=== PATIENT | male | born 1980 | race Caucasian/White ===

== ENCOUNTER 2017-08-18 21:03 | Inpatient (IN) | payer OTHER ==
[2017-08-18] MEDS ORDERED: ONDANSETRON 4 MG INJ IV (23:30)
[2017-08-18] MEDS: metroNIDAZOLE 500 MG/NS (PMX) 100 ML IVPB (23:37)
[2017-08-19] MEDS: PIPER-TAZO 3.375 GM IV (PMX) 100 ML IVPB ×4 (00:40→18:46)
[2017-08-19] MEDS: QUETIAPINE 25 MG TAB PO ×2 (00:40→20:25)
[2017-08-19] MEDS: RISPERIDONE 2 MG TAB PO ×2 (00:40→20:25)
[2017-08-19] MEDS: morphine 2 MG INJ IV ×3 (02:45→21:55)
[2017-08-19] MEDS: metroNIDAZOLE 500 MG/NS (PMX) 100 ML IVPB ×3 (05:21→23:25)
[2017-08-19 05:29] LABS: ADD MAN DIFF? NO
[2017-08-19 05:30] LABS: BASOPHILS % 0.5 % (0.0-2.0); EOSINOPHILS # 0.2 10^3/ul (0.0-0.5); EOSINOPHILS % 2.6 % (0.0-7.0); HEMOGLOBIN 11.1 g/dl (14.0-18.0); LYMPHOCYTES # 1.4 10^3/ul (0.8-2.9); LYMPHOCYTES % 15.5 % (15.0-51.0); MEAN CORPUSCULAR HEMOGLOBIN 28.8 pg (29.0-33.0); MEAN CORPUSCULAR HGB CONC 33.6 g/dl (32.0-37.0); MEAN CORPUSCULAR VOLUME 85.5 fl (82.0-101.0); MEAN PLATELET VOLUME 9.1 fl (7.4-10.4); MONOCYTE # 0.7 10^3/ul (0.3-0.9); NEUTROPHIL # 6.4 10^3/ul (1.6-7.5); NEUTROPHILS % 72.8 % (39.0-77.0); PLATELET COUNT 371 10^3/UL (140-415); RED BLOOD COUNT 3.86 10^6/ul (4.70-6.10)
[2017-08-19 05:30] LABS: WHITE BLOOD COUNT 8.8 10^3/ul (4.8-10.8)
[2017-08-19 05:48] LABS: ALANINE AMINOTRANSFERASE 29 IU/L (13-69); ALBUMIN 3.6 g/dl (3.3-4.9); ALBUMIN/GLOBULIN RATIO 0.97; ALKALINE PHOSPHATASE 95 IU/L (42-121); ANION GAP 16 (8-16); ASPARTATE AMINO TRANSFERASE 20 IU/L (15-46); BILIRUBIN,INDIRECT 0.2 mg/dl (0-1.1); BILIRUBIN,TOTAL 0.2 mg/dl (0.2-1.3); BLOOD UREA NITROGEN 7 mg/dl (7-20); CALCIUM 8.7 mg/dl (8.4-10.2); CARBON DIOXIDE 29 mmol/L (21-31); CHLORIDE 107 mmol/L (97-110); CREATININE 1.03 mg/dl (0.61-1.24); GLUCOSE 87 mg/dl (70-220); SODIUM 148 mmol/L (135-144); TOTAL PROTEIN 7.3 g/dl (6.1-8.1)
[2017-08-19] MEDS: BUPROPION (XL) 150 MG TAB PO (09:52)
[2017-08-19] MEDS: BUPROPION (SR) 150 MG TAB PO (09:54)
[2017-08-19] MEDS: ACETAMINOPHEN 325 MG TAB PO ×2 (12:07→20:25)
[2017-08-19] MEDS ORDERED: VANCOMYCIN IV PER PHARMACY XX (16:30)
[2017-08-19] MEDS: SOD FERRIC GLUC COMPLX 125 MG in SOD CHLORIDE 0.9% 100 ML IVPB (16:46)
[2017-08-19] MEDS: DEXTROSE 5% 1,000 ML IV (16:48)
[2017-08-19] MEDS: LIDOCAINE 1%/EPI (MDV) 50 ML INJ INJ (18:06)
[2017-08-19] MEDS: VANCOMYCIN 1.5 GM in SOD CHLORIDE 0.9% 250 ML IVPB (19:46)
[2017-08-19] MEDS ORDERED: QUETIAPINE 25 MG TAB PO (21:00)
[2017-08-19] MEDS ORDERED: RISPERIDONE 2 MG TAB PO (21:00)
[2017-08-19] MEDS: ZOLPIDEM 5 MG TAB PO (21:55)
[2017-08-20] MEDS: PIPER-TAZO 3.375 GM IV (PMX) 100 ML IVPB ×5 (00:54→23:58)
[2017-08-20 05:21] LABS: ADD MAN DIFF? NO
[2017-08-20 05:24] LABS: BASOPHIL # 0.1 10^3/ul (0.0-0.1); BASOPHILS % 0.9 % (0.0-2.0); EOSINOPHILS # 0.4 10^3/ul (0.0-0.5); EOSINOPHILS % 5.8 % (0.0-7.0); HEMATOCRIT 35.2 % (42.0-52.0); HEMOGLOBIN 11.8 g/dl (14.0-18.0); LYMPHOCYTES # 1.3 10^3/ul (0.8-2.9); LYMPHOCYTES % 19.7 % (15.0-51.0); MEAN CORPUSCULAR HGB CONC 33.5 g/dl (32.0-37.0); MEAN CORPUSCULAR VOLUME 86.5 fl (82.0-101.0); MEAN PLATELET VOLUME 8.9 fl (7.4-10.4); MONOCYTE # 0.7 10^3/ul (0.3-0.9); MONOCYTES % 10.2 % (0.0-11.0); NEUTROPHIL # 4.1 10^3/ul (1.6-7.5); NEUTROPHILS % 62.3 % (39.0-77.0); PLATELET COUNT 388 10^3/UL (140-415); RED BLOOD COUNT 4.07 10^6/ul (4.70-6.10); RED CELL DISTRIBUTION WIDTH 11.9 % (11.5-14.5)
[2017-08-20 05:24] LABS: WHITE BLOOD COUNT 6.6 10^3/ul (4.8-10.8)
[2017-08-20 05:38] LABS: ANION GAP 14 (8-16); BLOOD UREA NITROGEN 4 mg/dl (7-20); CARBON DIOXIDE 31 mmol/L (21-31); CHLORIDE 106 mmol/L (97-110); CREATININE 1.09 mg/dl (0.61-1.24); GLUCOSE 99 mg/dl (70-220); POTASSIUM 3.7 mmol/L (3.5-5.1); SODIUM 147 mmol/L (135-144)
[2017-08-20] MEDS: metroNIDAZOLE 500 MG/NS (PMX) 100 ML IVPB ×3 (06:00→22:11)
[2017-08-20] MEDS: VANCOMYCIN 1 GM 250 ML IVPB ×2 (06:58→19:38)
[2017-08-20] MEDS: morphine 2 MG INJ IV (09:17)
[2017-08-20] MEDS: SODIUM HYPOCHLORITE 0.125% 473 ML BTL IRR (09:17)
[2017-08-20] MEDS: BUPROPION (XL) 150 MG TAB PO (09:19)
[2017-08-20] MEDS: BUPROPION (SR) 150 MG TAB PO (09:39)
[2017-08-20] MEDS: DEXTROSE 5% 1,000 ML IV (11:00)
[2017-08-20] MEDS ORDERED: morphine LIQ (10 MG/5 ML) CUP PO ×2 (12:00)
[2017-08-20] MEDS: SOD FERRIC GLUC COMPLX 125 MG in SOD CHLORIDE 0.9% 100 ML IVPB (17:42)
[2017-08-20] MEDS: QUETIAPINE 25 MG TAB PO (20:17)
[2017-08-20] MEDS: RISPERIDONE 2 MG TAB PO (20:18)
[2017-08-20] MEDS: ZOLPIDEM 5 MG TAB PO (20:24)
[2017-08-21] MEDS: PIPER-TAZO 3.375 GM IV (PMX) 100 ML IVPB ×3 (05:11→17:58)
[2017-08-21] MEDS: metroNIDAZOLE 500 MG/NS (PMX) 100 ML IVPB (05:11)
[2017-08-21] MEDS: ACETAMINOPHEN 325 MG TAB PO (05:11)
[2017-08-21] MEDS: DEXTROSE 5% 1,000 ML IV (05:15)
[2017-08-21 06:01] LABS: ADD MAN DIFF? NO
[2017-08-21 06:14] LABS: BASOPHIL # 0.1 10^3/ul (0.0-0.1); BASOPHILS % 1.2 % (0.0-2.0); EOSINOPHILS # 0.4 10^3/ul (0.0-0.5); EOSINOPHILS % 7.5 % (0.0-7.0); HEMATOCRIT 34.4 % (42.0-52.0); HEMOGLOBIN 11.5 g/dl (14.0-18.0); LYMPHOCYTES # 1.5 10^3/ul (0.8-2.9); MEAN CORPUSCULAR HEMOGLOBIN 28.6 pg (29.0-33.0); MEAN CORPUSCULAR HGB CONC 33.4 g/dl (32.0-37.0); MEAN CORPUSCULAR VOLUME 85.6 fl (82.0-101.0); MEAN PLATELET VOLUME 8.9 fl (7.4-10.4); MONOCYTE # 0.7 10^3/ul (0.3-0.9); MONOCYTES % 12.2 % (0.0-11.0); NEUTROPHIL # 2.9 10^3/ul (1.6-7.5); NEUTROPHILS % 51.2 % (39.0-77.0); PLATELET COUNT 381 10^3/UL (140-415); RED BLOOD COUNT 4.02 10^6/ul (4.70-6.10); RED CELL DISTRIBUTION WIDTH 11.9 % (11.5-14.5)
[2017-08-21 06:14] LABS: WHITE BLOOD COUNT 5.7 10^3/ul (4.8-10.8)
[2017-08-21 07:21] LABS: ALANINE AMINOTRANSFERASE 34 IU/L (13-69); ALBUMIN 3.2 g/dl (3.3-4.9); ALBUMIN/GLOBULIN RATIO 0.91; ALKALINE PHOSPHATASE 79 IU/L (42-121); ANION GAP 12 (8-16); ASPARTATE AMINO TRANSFERASE 35 IU/L (15-46); BLOOD UREA NITROGEN 6 mg/dl (7-20); CALCIUM 8.8 mg/dl (8.4-10.2); CARBON DIOXIDE 29 mmol/L (21-31); CHLORIDE 108 mmol/L (97-110); CREATININE 1.12 mg/dl (0.61-1.24); GLUCOSE 92 mg/dl (70-220); POTASSIUM 3.8 mmol/L (3.5-5.1); SODIUM 145 mmol/L (135-144); TOTAL PROTEIN 6.7 g/dl (6.1-8.1)
[2017-08-21 07:21] LABS: VANCOMYCIN,TROUGH 11.5 ug/ml (10.0-20.0)
[2017-08-21] MEDS: VANCOMYCIN 1 GM 250 ML IVPB ×2 (07:37→18:49)
[2017-08-21] MEDS: BUPROPION (XL) 150 MG TAB PO (09:37)
[2017-08-21] MEDS: SODIUM HYPOCHLORITE 0.125% 473 ML BTL IRR (09:40)
[2017-08-21 10:53] LABS: OCCULT BLOOD STOOL NEGATIVE (NEGATIVE)
[2017-08-21] MEDS: OXYCODONE/ACETAMINOPHEN (5/325) TAB PO (17:09)
[2017-08-21] MEDS: QUETIAPINE 25 MG TAB PO (20:24)
[2017-08-21] MEDS: RISPERIDONE 2 MG TAB PO (20:24)
[2017-08-21] MEDS: ZOLPIDEM 5 MG TAB PO (22:03)
[2017-08-22] MEDS: PIPER-TAZO 3.375 GM IV (PMX) 100 ML IVPB ×4 (00:43→18:00)
[2017-08-22 05:17] LABS: ADD MAN DIFF? NO
[2017-08-22 05:20] LABS: BASOPHIL # 0.1 10^3/ul (0.0-0.1); BASOPHILS % 1.2 % (0.0-2.0); EOSINOPHILS # 0.4 10^3/ul (0.0-0.5); EOSINOPHILS % 4.8 % (0.0-7.0); HEMATOCRIT 35.6 % (42.0-52.0); HEMOGLOBIN 11.8 g/dl (14.0-18.0); LYMPHOCYTES # 2.2 10^3/ul (0.8-2.9); LYMPHOCYTES % 29.9 % (15.0-51.0); MEAN CORPUSCULAR HEMOGLOBIN 28.4 pg (29.0-33.0); MEAN CORPUSCULAR HGB CONC 33.1 g/dl (32.0-37.0); MEAN CORPUSCULAR VOLUME 85.8 fl (82.0-101.0); MEAN PLATELET VOLUME 8.8 fl (7.4-10.4); MONOCYTE # 0.8 10^3/ul (0.3-0.9); MONOCYTES % 10.4 % (0.0-11.0); NEUTROPHIL # 3.8 10^3/ul (1.6-7.5); NEUTROPHILS % 51.7 % (39.0-77.0); PLATELET COUNT 410 10^3/UL (140-415); RED BLOOD COUNT 4.15 10^6/ul (4.70-6.10)
[2017-08-22 05:20] LABS: WHITE BLOOD COUNT 7.3 10^3/ul (4.8-10.8)
[2017-08-22 05:35] LABS: PHOSPHORUS 4.5 mg/dl (2.5-4.9)
[2017-08-22 05:35] LABS: MAGNESIUM 2.1 mg/dl (1.7-2.5)
[2017-08-22 05:36] LABS: ALANINE AMINOTRANSFERASE 48 IU/L (13-69); ALBUMIN 3.4 g/dl (3.3-4.9); ALBUMIN/GLOBULIN RATIO 0.91; ALKALINE PHOSPHATASE 75 IU/L (42-121); ANION GAP 14 (8-16); ASPARTATE AMINO TRANSFERASE 51 IU/L (15-46); BILIRUBIN,INDIRECT 0.1 mg/dl (0-1.1); BILIRUBIN,TOTAL 0.1 mg/dl (0.2-1.3); BLOOD UREA NITROGEN 9 mg/dl (7-20); CALCIUM 8.6 mg/dl (8.4-10.2); CARBON DIOXIDE 30 mmol/L (21-31); CHLORIDE 107 mmol/L (97-110); CREATININE 1.17 mg/dl (0.61-1.24); GLUCOSE 102 mg/dl (70-220); POTASSIUM 3.6 mmol/L (3.5-5.1); SODIUM 147 mmol/L (135-144); TOTAL PROTEIN 7.1 g/dl (6.1-8.1)
[2017-08-22] MEDS: VANCOMYCIN 1 GM 250 ML IVPB (06:56)
[2017-08-22] MEDS: BUPROPION (XL) 150 MG TAB PO (12:05)
[2017-08-22] MEDS: morphine LIQ (10 MG/5 ML) CUP PO (12:09)
[2017-08-22] MEDS: SODIUM HYPOCHLORITE 0.125% 473 ML BTL IRR (17:25)
== END 2017-08-22 18:40 | disposition home health service (06) | DRG 345 ==
LOC: MS1 21:03
PROC: 0D9P0ZX Drainage of Rectum, Open Approach, Diagnostic (ICD-10-PCS; principal; 2017-08-19)
DX: K61.1 Rectal abscess (principal); E87.0 Hyperosmolality and hypernatremia; R65.10 Systemic inflammatory response syndrome (SIRS) of non-infectious origin without acute organ dysfunction; F25.9 Schizoaffective disorder, unspecified; K62.89 Other specified diseases of anus and rectum; D50.9 Iron deficiency anemia, unspecified; M79.3 Panniculitis, unspecified; B96.20 Unspecified Escherichia coli [E. coli] as the cause of diseases classified elsewhere
CPT/HCPCS: 72192; 80048; 80053; 80202; 82270; 83735; 84100; 85025; 87070